=== PATIENT | male | born 1975 | race Native Hawaiian/Other Pacific Islander ===

== ENCOUNTER 2020-08-30 07:29 | Inpatient (IN) | payer OTHER ==
[~2020-08-30] VITALS: Ht 180.3 cm; Wt 86.6 kg
[2020-08-30 07:46] VITALS: BP 108/47; TEMP 102.9
[2020-08-30 08:58] LABS: PLATELET COUNT 391 K/uL (142-355)
[2020-08-30 09:07] LABS: POTASSIUM 4.2 mmol/L (3.6-5.2); SODIUM 136 mmol/L (136-145)
[2020-08-30 11:35] VITALS: BP 118/62; TEMP 98.3; Ht 180.3 cm; Wt 86.6 kg
[2020-08-30 12:00] VITALS: BP 118/62; TEMP 98.3
[2020-08-30 16:00] VITALS: BP 112/45; TEMP 99.5
[2020-08-30 17:45] LABS: POTASSIUM 4.7 mmol/L (3.6-5.2)
[2020-08-30 20:00] VITALS: BP 107/63; TEMP 100.1
[2020-08-30 23:38] VITALS: BP 133/66; TEMP 98.9
[2020-08-31 04:00] VITALS: BP 109/56; TEMP 98.6
[2020-08-31 06:04] LABS: PLATELET COUNT 359 K/uL (142-355)
[2020-08-31 06:06] LABS: POTASSIUM 4.6 mmol/L (3.6-5.2)
[2020-08-31 08:00] VITALS: BP 113/54; TEMP 99.7
[2020-08-31 12:00] VITALS: BP 112/52; BP 133/69; TEMP 97.9; TEMP 98
[2020-08-31 16:00] VITALS: BP 133/69; TEMP 98
[2020-08-31 19:58] VITALS: BP 101/48; TEMP 98.6
[2020-08-31 23:47] VITALS: BP 134/71; TEMP 98.6
[2020-09-01 03:41] VITALS: BP 123/60; TEMP 97.8
[2020-09-01 06:17] LABS: POTASSIUM 3.7 mmol/L (3.6-5.2)
[2020-09-01 07:23] LABS: PLATELET COUNT 367 K/uL (142-355)
[2020-09-01 08:00] VITALS: BP 119/53; TEMP 97.9
[2020-09-01 12:00] VITALS: BP 142/70; TEMP 98.1
[2020-09-01 16:00] VITALS: BP 134/71; TEMP 98.1
[2020-09-01 20:00] VITALS: BP 121/77; TEMP 98.6
[2020-09-02] VITALS: BP 114/54; TEMP 97.9
[2020-09-02 04:00] VITALS: BP 120/67; TEMP 98.2
[2020-09-02 05:14] LABS: PLATELET COUNT 379 K/uL (142-355)
[2020-09-02 05:29] LABS: POTASSIUM 3.5 mmol/L (3.6-5.2)
[2020-09-02 08:00] VITALS: BP 134/75; TEMP 98.3
[2020-09-02 12:00] VITALS: BP 121/68; TEMP 99.1
[2020-09-02] MEDS ORDERED: CITA20TA2 PO (12:23)
[2020-09-02] MEDS ORDERED: CLINDAMYCIN HC150 MG PO (12:24)
[2020-09-02] MEDS ORDERED: GUAI600T70 PO (12:24)
[2020-09-02] MEDS ORDERED: IPRAAER INH (12:25)
[2020-09-02] MEDS ORDERED: QUET100T2 PO (12:26)
[2020-09-02] MEDS ORDERED: DOCU100C10 PO (12:39)
[2020-09-02] MEDS ORDERED: IRON325 MG PO (12:39)
== END 2020-09-02 16:07 | disposition home or self-care (01) | DRG 177 ==
LOC: ED 07:29 → MED/SURG 09:30
PROVIDERS: ADMIT Hospitalist; ATTEND Internal Medicine Endocrinology, Diabetes & Metabolism
DX: J15.212 Pneumonia due to Methicillin resistant Staphylococcus aureus (principal); J96.01 Acute respiratory failure with hypoxia; D50.8 Other iron deficiency anemias; Z72.0 Tobacco use; F32.89 Other specified depressive episodes; T38.0X5A Adverse effect of glucocorticoids and synthetic analogues, initial encounter; E09.65 Drug or chemical induced diabetes mellitus with hyperglycemia; Y92.89 Other specified places as the place of occurrence of the external cause
CPT/HCPCS: 36415; 36600; 80048; 80053; 80202; 81000; 82550; 82805; 83605; 83880; 84484; 85007; 85027; 85610; 85730; 87040; 87070; 87077; 87185; 87186; 87205; 87502; 87635; 87651; 93005; 94664; 94667; 94760; 96365; 96375; 99284; J1100; J1650; J1750; J1815; J1885; J1956; J2543; J3370; U0003

== ENCOUNTER 2020-10-31 10:11 | Outpatient (CLI) | payer OTHER ==
[~2020-10-31 10:11] MED LIST: CITA20TA2 PO; CLINDAMYCIN HC150 MG PO; DOCU100C10 PO; GUAI600T70 PO; IPRAAER INH; IRON325 MG PO; QUET100T2 PO
== END 2020-10-31 19:37 | disposition home or self-care (01) ==
LOC: RAD 10:11
PROVIDERS: ATTEND Internal Medicine
DX: J44.9 Chronic obstructive pulmonary disease, unspecified (principal); E11.9 Type 2 diabetes mellitus without complications; M79.672 Pain in left foot; M79.671 Pain in right foot; F32.9 Major depressive disorder, single episode, unspecified

== ENCOUNTER 2021-05-04 14:29 | Emergency (ER) | payer OTHER ==
[2021-05-04] VITALS (10 sets, daily range): BP systolic 104–140; BP diastolic 57–85; TEMP 98–98.5
[~2021-05-04] VITALS: Ht 180.3 cm; Wt 81.6 kg
[2021-05-04 15:26] LABS: PLATELET COUNT 444 K/uL (142-355)
[2021-05-04 15:27] LABS: POTASSIUM 4.1 mmol/L (3.6-5.2); SODIUM 134 mmol/L (136-145)
[2021-05-05 05:07] LABS: PLATELET COUNT 376 K/uL (142-355)
[2021-05-05 05:17] LABS: POTASSIUM 4.8 mmol/L (3.6-5.2)
[2021-05-05 07:06] VITALS: BP 120/70; TEMP 98
[2021-05-05 10:27] VITALS: BP 132/74
== END 2021-05-05 11:40 | disposition still patient (30) ==
LOC: ED 14:29 → MED/SURG 22:00 → ED 05-05 11:40
PROVIDERS: Emergency Medicine Emergency Medical Services
PROC: 30233N1 Transfusion of Nonautologous Red Blood Cells into Peripheral Vein, Percutaneous Approach (ICD-10-PCS; principal; 2021-05-04)
PROC: 0T9B70Z Drainage of Bladder with Drainage Device, Via Natural or Artificial Opening (ICD-10-PCS; 2021-05-04)
PROC: 0BH17EZ Insertion of Endotracheal Airway into Trachea, Via Natural or Artificial Opening (ICD-10-PCS; 2021-05-04)
PROC: 5A1935Z Respiratory Ventilation, Less than 24 Consecutive Hours (ICD-10-PCS; 2021-05-04)
DX: J96.00 Acute respiratory failure, unspecified whether with hypoxia or hypercapnia (principal); K92.2 Gastrointestinal hemorrhage, unspecified; J18.9 Pneumonia, unspecified organism; J44.1 Chronic obstructive pulmonary disease with (acute) exacerbation; Z11.52 Encounter for screening for COVID-19
CPT/HCPCS: 31500; 36430; 36600; 51702; 80048; 80053; 80307; 81000; 82150; 82271; 82805; 83605; 83690; 83986; 84484; 85007; 85027; 85379; 85610; 86850; 86900; 86901; 86922; 87040; 87205; 87502; 87635; 93005; 94002; 94003; 94660; 94664; 94760; 96365; 96366; 96375; 96376; 99285; J0330; J1956; J2270; J2405; J2920; J2930; J3370; J3490; P9016; U0003